=== PATIENT | female | born 1985 | race African-American/Black ===

== ENCOUNTER 2022-10-18 08:47 | Emergency (ER) | payer MEDICAID, SELFPAY ==
[2022-10-18 08:49] VITALS: BP 131/86; PULSE 89; RESP 14; TEMP 36.3; O2SAT 99; BMI 45.8
--- NOTE | 2022-10-18 09:38 | ED.VIS.CHEST ---
HPI History of Present Illness Chief Complaint: Chest Pain Informant: patient Narrative Narrative: Patient is a 37-year-old female presenting from work for chest pain. 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 Around 5 AM she had an episode of sharp pain under her left breast. While she was driving at work she started to have more frequent episodes of this pain. She states the pain is squeezing in nature. Patient did go to the grocery store by aspirin. She took 3 x 81 mg aspirin prior to arrival. States the pain last for couple seconds at a time. It does not radiate. Now feels squeezing in nature. She never any like as before. Denies any associated fever, cough, shortness of breath, nausea, sweating, abdominal pain or urinary symptoms. States her mother has a history of CHF but she denies any family history of heart disease at a young age. Patient does report that she had a recent sinus infection a couple weeks ago that she is getting over. She states she is never had a cardiac evaluation or stress test in the past. PFSH PFSH Medical History no medical history Allergy/AdvReac Type Severity Reaction Status Date / Time Penicillins [PCN] Allergy Angioedema Verified 10/18/22 08:49 Social History Smoking Status: Unknown if ever smoked ROS [facility] ED Constitutional Constitutional ED: Denies chills or fever(s) Eyes Eyes: Denies blurry vision Cardiovascular Cardiovascular: Reports as per HPI and chest pain Respiratory/Chest Respiratory/Chest: Denies cough or dyspnea Gastrointestinal Gastrointestinal: Denies abdominal pain, nausea or vomiting Musculoskeletal Musculoskeletal: Denies arthralgias or myalgias Integumentary Denies rash Neurologic Neurologic: Denies headache(s) or weakness Psychiatric Psychiatric: Denies anxiety Hematologic/Lymphatic Hematologic/Lymphatic: Denies easy bleeding or easy bruising EXAM Physical Exam Const Vital Signs: 10/18/22 08:49 10/18/22 09:35 10/18/22 11:23 Temperature 97.3 F L Temperature Source Temporal Pulse Rate 89 71 Respiratory Rate 14 14 Blood Pressure 131/86 H 127/82 H Blood Pressure Mean 101 97 Pulse Ox 99 98 Oxygen Delivery Method Room Air Room Air Room Air 10/18/22 13:35 Temperature Temperature Source Pulse Rate 80 Respiratory Rate 18 Blood Pressure 153/100 H Blood Pressure Mean Pulse Ox 99 Oxygen Delivery Method Positive well nourished and well developed General Appearance ED: well developed and NAD HEENT Reports moist mucous membranes normocephalic and atraumatic Eyes PERRL Neck supple and no JVD Chest Wall inspection of chest normal and palpation of chest normal Chest: Negative for tenderness Resp normal respiratory effort and clear to auscultation bilaterally Auscultation: Negative for wheezes Cardio regular rate, regular rhythm and no murmurs Peripheral Pulses: radial pulses present GI normal to inspection, nondistended, normoactive bowel sounds Extremity normal to inspection General Extremety ED: Negative for edema General Extremity: Negative for edema Neuro oriented x3 Sensorium / Orientation: awake and alert Psych mental status grossly normal Skin no rashes or lesions noted Heart Score History: Slightly/Non-Suspicious ECG: Nonspecific Repolarization Age: </= 45 years Risk Factors: 1 or 2 Risk Factors Troponin: </= Normal Limit Score: 2 MDM MDM MDM Narrative Medical decision making narrative: Patient is evaluated for 1 day of intermittent chest pain. The patient is only lasting for couple seconds at a time. She currently has no pain. Vital signs are largely normal. She denies any known cardiac history. Does not take any medications. Differential includes ACS, pulmonary emboli, pneumonia, muscle skeletal chest pain and pleurisy. Patient's work-up is largely normal. She has a normal high-sensitivity troponin x2. She does have some nonspecific T wave inversions however given that she does not have any further pain and her troponins are normal I do not think this is ACS I think she stable for outpatient follow-up from a cardiac standpoint. 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 Her CTA does not show any acute process. Patient will be discharged with instructions to follow-up with her primary care doctor through access point for further cardiac evaluation on an outpatient basis. Patient verbalized agreement understand this plan. She is discharged home in stable condition. Lab Data Attestation: I reviewed the patient's lab results. Labs: Laboratory Results - last 24 hr 10/18/22 10/18/22 10/18/22 08:40 08:40 08:40 WBC 5.7 RBC 3.82 L Hgb 11.8 L Hct 36.7 L MCV 96.1 MCH 30.9 MCHC 32.2 RDW Std Deviation 47.2 H RDW Coeff of Vanda 13.3 Plt Count 254 MPV 11.0 Immature Gran % (Auto) 0.300 Neut % (Auto) 64.1 Lymph % (Auto) 26.0 [place] % (Auto) 7.2 Eos % (Auto) 2.1 Baso % (Auto) 0.3 Absolute Neuts (auto) 3.7 Absolute Lymphs (auto) 1.49 Nucleated RBC % 0 D-Dimer Quant (PE/DVT) 0.86 H* Sodium 139 Potassium 3.1 L Chloride 105 Carbon Dioxide 27.0 Anion Gap 7 BUN 10 Creatinine 0.70 Estim Creat Clear Calc 113.88 Est GFR (MDRD) Af Amer 119 Est GFR (MDRD) Non-Af 99 BUN/Creatinine Ratio 14.2 Glucose 90 Calcium 8.7 Troponin I High Sens 4 10/18/22 11:47 WBC RBC Hgb Hct MCV MCH MCHC RDW Std Deviation RDW Coeff of Vanda Plt Count MPV Immature Gran % (Auto) Neut % (Auto) Lymph % (Auto) [place] % (Auto) Eos % (Auto) Baso % (Auto) Absolute Neuts (auto) Absolute Lymphs (auto) Nucleated RBC % D-Dimer Quant (PE/DVT) Sodium Potassium Chloride Carbon Dioxide Anion Gap BUN Creatinine Estim Creat Clear Calc Est GFR (MDRD) Af Amer Est GFR (MDRD) Non-Af BUN/Creatinine Ratio Glucose Calcium Troponin I High Sens 4 Radiography Diagnostic Testing: Clinical Impression(s) from Imaging Studies Chest X-Ray 10/18/22 09:55 IMPRESSION: Normal x-ray examination of the chest. Electronically Signed: Devin Patiño MD at 10:17 EST , Chest CTA 10/18/22 10:32 IMPRESSION: Normal CTA chest examination, without a demonstrated pulmonary embolism or arterial dissection. Electronically Signed: Devin Patiño MD at 12:38 EST , Rhythm Strip Rhythm Strip: Sinus Rhythm Rate: 88 Ectopy: None EKG Initial EKG: Attestation: I personally reviewed and interpreted this EKG as follows: Interpretation: Sinus Rhythm Comments: Normal sinus rhythm at a rate of 88 bpm Normal axis Normal GA and QRS QTc 474 T wave inversions in 3, V1 through V4 with no reciprocal changes No prior EKG available for comparison Discharge Plan Triage Chief Complaint: Chest Pain ED Provider: Maritza Christian Dx/Rx/DC Orders Clinical Impression: Chest pain Instructions: ED Chest Pain, Uncertain Cause Primary Care Provider: Care Physician,No Primary Referrals: Care Physician,No Primary [Primary Care Provider] - Activity Restrictions/Additional Instructions: Please follow-up with your primary care doctor at access point for further cardiac evaluation/evaluation of your chest pain. Your work-up here was normal but the exact cause of your pain today is not clear. Disposition Disposition: Home, Self Care Discharge Date/Time: 10/18/22 13:48
[2022-10-18 09:44] LABS: Absolute Lymphocyte Count 1.49 X10^3/uL (0.83-4.51); Absolute Neutrophil Count 3.7 X10^3/uL (2.0-7.7); Basophil# 0.02 X10^3/uL; Basophil% 0.3 % (0-1); Eosinophil# 0.12 X10^3/uL; Eosinophils% 2.1 % (0-5); Hematocrit 36.7 % (37-47); Hemoglobin 11.8 g/dL (12.0-15.0); Lymphocyte # 1.49 X10^3/ul (0.83-4.51); Mean Corp Hgb Conc 32.2 g/dL (32-36); Mean Corpuscular Hgb 30.9 pg (27.0-32.0); Mean Corpuscular Volume 96.1 fL (81-99); Monocyte# 0.41 X10^3/uL; Monocyte% 7.2 % (0-10); NRBC Flagged by Analyzer 0 % (0-5); Neutrophil # 3.67 X10^3/uL (2.7-7.7); Neutrophil % 64.1 % (47-70); Platelet Count 254 K/mm3 (150-450); RBC Distribution Width CV 13.3 % (11.6-14.6); RBC Distribution Width SD 47.2 fl (35.1-43.9); Red Blood Count 3.82 M/mm3 (4.2-5.4); White Blood Count 5.7 K/mm3 (4.4-11.0)
--- NOTE | 2022-10-18 09:55 | RAD_ITS ---
STUDY: X-RAY CHEST REASON FOR EXAM: Female, 37 years old. Chest pain TECHNIQUE: PA and lateral views of the chest. COMPARISON: None. FINDINGS: EKG electrodes are seen. The lungs are clear and expanded. There is no demonstrated pleural abnormality. Normal size heart. Normal mediastinum and bill. Normal visualized pulmonary arteries. Normal visualized aortic arch and descending thoracic aorta. Normal visualized thoracic spine. Normal visualized ribs, clavicles, and shoulders. There is no demonstrated abnormality of the visualized soft tissue structures of the upper abdomen. RAD/Chest PA and Lateral IMPRESSION: Normal x-ray examination of the chest. Electronically Signed: Devin Patiño MD at 10:17 [facility] ,
[2022-10-18 10:01] LABS: Anion Gap 7 (5-15); BUN 10 mg/dL (7-18); BUN/Creat Ratio 14.2 RATIO (10-20); Calcium,Total 8.7 mg/dL (8.5-10.1); Chloride 105 mmol/L (98-107); EST Glomerular Filtration Rate 99 mL/min (>60); Est Glom Filt Rate - Afr Amer 119 mL/min (>60); Estimated Creatinine Clearance 113.88 ml/min; Glucose 90 mg/dL (74-106); Potassium 3.1 mmol/L (3.5-5.1); Sodium Level 139 mmol/L (136-145); Troponin-I HS (w/2H Reflex) 4 pg/mL (3.0-54.0)
[2022-10-18 10:31] LABS: D-Dimer Quantitative (DVT/PE) 0.86 FEU/ug/m (0.27-0.49)
--- NOTE | 2022-10-18 10:32 | CT_ITS ---
STUDY: CTA CHEST REASON FOR EXAM: Female, 37 years old. Chest pain, elevated dimer RADIATION DOSAGE (If Supplied By Facility): CTDIvol = ( 11.47 ) mGy, DLP = ( 484.34 ) mGycm TECHNIQUE: The examination was performed with the intravenous administration of IV 100mL [id number]-[id number]. Post-processing of the angiographic images was performed, with multiplanar reformation and 3D reconstruction. Individualized dose optimization techniques were used for this CT. COMPARISON: Comparison is made with prior chest radiograph and earlier in the day. FINDINGS: Normal enhancement of the main pulmonary artery and right and left pulmonary arteries. Normal enhancement of the bilateral peripheral pulmonary arteries. There is no demonstrated pulmonary embolism. Normal thoracic aorta and visualized great vessels. There is no demonstrated aortic dissection. Normal heart and pericardium. Normal mediastinum. Normal hilar regions. Normal visualized trachea and bronchi. The lungs are well expanded. Normal pulmonary parenchyma. Normal pleura. Normal chest wall structures. Normal osseous structures. Gallstones. CT/CTA Chest W/WO Contrast IMPRESSION: Normal CTA chest examination, without a demonstrated pulmonary embolism or arterial dissection. Electronically Signed: Devin Patiño MD at 12:38 EST ,
[2022-10-18 11:23] VITALS: BP 127/82; PULSE 71; RESP 14; O2SAT 98
[2022-10-18 11:40] LABS: Reflex Troponin-HS? (from REC) Y
[2022-10-18 12:10] LABS: Troponin-I HS 4 pg/mL (3.0-54.0)
--- NOTE | 2022-10-18 12:50 | CM.ED ---
SW met with patient as tracker said that patient has no PCP. However, patient voiced she has Access Point at her PCP provider. No other issues or concerns voiced. Mignon MORFIN
[2022-10-18 13:35] VITALS: BP 153/100; PULSE 80; RESP 18; O2SAT 99
== END 2022-10-18 13:48 | disposition home or self-care (01) ==
PROVIDERS: Emergency Provider Emergency Medicine; Visit Provider Emergency Medicine
DX: R07.9 Chest pain, unspecified (principal)
CPT/HCPCS: 71046; 71275; 80048; 84484; 85025; 85379; 93005; 99285; Q9967; A4216